=== PATIENT | female | born 1990 | race American Indian/Alaskan Native ===

== ENCOUNTER 2017-01-16 20:56 | Outpatient (CLI) | payer BC ==
[2017-01-16 22:02] VITALS: BP 97/55
== END 2017-01-16 22:11 | disposition home or self-care (01) ==
LOC: TRG 20:56
PROVIDERS: ATTEND Obstetrics & Gynecology
DX: O62.9 Abnormality of forces of labor, unspecified (principal); Z3A.37 37 weeks gestation of pregnancy

== ENCOUNTER 2017-01-18 09:08 | Inpatient (IN) | payer BC ==
[2017-01-18] MEDS ORDERED: LACTATED RINGERS 1,000 ML ONE ×2 (10:30→10:31)
[2017-01-18] MEDS ORDERED: SUBLIMAZE IV PRN (10:35)
[2017-01-18] MEDS ORDERED: BRETHINE IVP PRN (10:35)
[2017-01-18] MEDS ORDERED: BRETHINE SUB-Q PRN (10:35)
[2017-01-18] MEDS ORDERED: ePHEDrine SULFATE IV PRN (10:35)
[2017-01-18] MEDS ORDERED: MINERAL OIL PO PRN (10:35)
[2017-01-18] MEDS ORDERED: STADOL IV PRN (10:35)
[2017-01-18] MEDS ORDERED: PITOCin/NS 30 UNIT/500ML 30 UNITS/500 ML BAG IV SCH (11:00)
[2017-01-18] MEDS ORDERED: PITOCin/NS 20 UNIT/1000ML DRIP 20 UNITS/1,000 ML BAG IV SCH (11:00)
[2017-01-18] MEDS ORDERED: XYLOCAINE 2% INFILTRATI ONE (11:00)
[2017-01-18] MEDS ORDERED: LACTATED RINGERS 1,000 ML IV SCH (11:00)
[2017-01-18 11:16] LABS: Hematocrit 37.7 % (30.3-42.9); Hemoglobin 12.5 gm/dl (10.1-14.3); Mean Corpuscular HGB Conc 33 % (30-34); Mean Corpuscular Hemoglobin 30 pg (28-32); Mean Corpuscular Volume 90 fl (79-97); Platelet Count 187 K/mm3 (140-440); Red Blood Count 4.19 M/mm3 (3.65-5.03); White Blood Count 12.3 K/mm3 (4.5-11.0)
[2017-01-18] MEDS ORDERED: TYLENOL PO PRN (11:20)
[2017-01-18] MEDS ORDERED: MILK OF MAGNESIA PO PRN (11:20)
[2017-01-18] MEDS ORDERED: DULCOLAX PR PRN (11:20)
[2017-01-18] MEDS ORDERED: TUCKS PAD TP PRN (11:20)
[2017-01-18] MEDS ORDERED: ZOFRAN IV PRN (11:20)
[2017-01-18] MEDS ORDERED: PHENERGAN PO PRN (11:20)
[2017-01-18] MEDS ORDERED: LANSINOH TP PRN (11:20)
[2017-01-18] MEDS ORDERED: BENADRYL PO PRN (11:20)
--- NOTE | 2017-01-18 11:27 | Procedure Note ---
OB Delivery Note - Vaginal Delivery presentation: vertex Delivery position: OA Intrapartum events: none Delivery induction: none Delivery monitor: external FHT, external uterine Route of delivery: Delivery placenta: spontaneous Delivery cord: 3 umbilical vessels Episiotomy: none Delivery laceration: none Anesthesia: none Delivery comments: Precipitous spontaneous vaginal delivery of liveborn male over intact perineum. Baby's weight: 6 lbs.;apgars 8/9. Spontaneous cry and respirations. Baby placed immediately on maternal chest after . Baby bulb suctioned. 3 vessel cord was double clamped and cut after cessation of pulsation. Spontaneous delivery of intact placenta and membranes by branham mechanism. Pitocin to IV fluids after delivery of placenta. Fundus firm and midline. EBL 200 ml. No lacerations noted. Sponge counts correct. Mother and baby stable in birthing room.
--- NOTE | 2017-01-18 11:39 | History and Physical Report ---
History of Present Illness Date of examination: 01/18/17 Date of admission: 01/18/17 10:04 Chief complaint: Regular contractions. History of present illness: 26 year old presents in active labor. EDC 02/05/17. Patient reports rupture of membranes prior to arrival this morning with clear fluid. She denies vaginal bleeding. She received care at [facility]. She saw [facility] due to obesity class 3. Past History Past Medical History: other (obesity) Past Surgical History: no surgical history [facility] History: denies: herpes Family/Genetic History: none Social history: , lives with family. denies: smoking, alcohol abuse - Obstetrical History Expected Date of Delivery: 02/05/17 Actual Gestation: 37 Week(s) 3 Day(s) : 4 Para: 2 Hx # Term Pregnancies: 3 Number of Pregnancies: 0 Spontaneous Abortions: 1 Induced : 0 Number of Living Children: 2 Medications and Allergies Allergies Allergy/AdvReac Type Severity Reaction Status Date / Time No Known Allergies Allergy Verified 12/19/14 11:50 Home Medications Medication Instructions Recorded Confirmed Last Taken Type Ibuprofen [Motrin 600 MG tab] 600 mg PO Q6H #60 tablet 12/20/14 Unknown Rx Active Meds: Active Medications Acetaminophen (Tylenol) 650 mg PO Q4H PRN PRN Reason: Pain MILD(1-3)/Fever >100.5/[place] Bisacodyl (Dulcolax) 10 mg [place] BID PRN PRN Reason: Constipation Butorphanol Tartrate (Stadol) 2 mg IV Q2H PRN PRN Reason: Pain , Severe (7-10) Diphenhydramine HCl (Benadryl) 25 mg PO Q6H PRN PRN Reason: Itching Fentanyl (Sublimaze) 100 mcg IV Q2H PRN PRN Reason: Labor Pain Lactated Ringer's (Lactated Ringers) 1,000 mls @ 125 mls/hr IV DIRECT DULCE Oxytocin/Sodium Chloride (Pitocin/Ns 20 Unit/1000ml Drip) 20 units in 1,000 mls @ 125 mls/hr IV DIRECT DULCE Oxytocin/Sodium Chloride (Pitocin/Ns 30 Unit/500ml) 30 units in 500 mls @ 1 mls /hr IV TITR DULCE; 1 MILLIUNITS/MIN PRN Reason: Protocol Ibuprofen (Motrin) 600 mg PO Q6H DULCE Magnesium Hydroxide (Milk Of Magnesia) 30 ml PO HS PRN PRN Reason: Constipation Mineral Oil (Mineral Oil) 30 ml PO QHS PRN PRN Reason: Constipation Multi-Ingredient Ointment (Lansinoh) 1 applic TP PRN PRN PRN Reason: Sore Nipples Ondansetron HCl (Zofran) 4 mg IV Q8H PRN PRN Reason: Nausea And Vomiting Promethazine HCl (Phenergan) 25 mg PO Q6H PRN PRN Reason: Nausea And Vomiting Sodium Chloride (Sodium Chloride Flush Syringe 10 Ml) 10 ml IV PRN NR Witch Stephani/Glycerin (Tucks Pad) 1 each TP PRN PRN PRN Reason: Hemorrhoid/cleansing/soothing Review of Systems All systems: negative (leaking of water from vagina and contractions) - Vital Signs Vital signs: Vital Signs Temp Pulse 98 F 68 01/18/17 10:45 01/18/17 10:45 Temp Pulse Resp BP Pulse Ox 98 F 73 137/64 01/18/17 10:45 01/18/17 11:32 01/18/17 11:32 - Physical Exam Breasts: Positive: deferred Cardiovascular: Regular rate, No murmurs Lungs: Positive: Clear to auscultation Abdomen: Positive: normal appearance, soft. Negative: distention, tenderness, guarding Genitourinary (Female): Positive: normal external genitalia. Negative: perineal /vulvar lesions Vagina: Negative: discharge Uterus: Positive: enlarged. Negative: tender Extremities: Positive: normal. Negative: edema - Obstetrical FHR: category 1 Uterine Contraction Monitor Mode: External Cervical Dilatation: 10 Cervical Effacement Percentage: 100 station: +2 Uterine Contraction Frequency (min): Every 2 minutes Uterine Contraction Pattern: Regular Uterine Contraction Intensity: Strong/Firm Results Result Diagrams: 01/18/17 10:51 Abnormal lab results 01/18/17 Range/Units 10:51 WBC 12.3 H (4.5-11.0) K/mm3 RDW 13.0 L (13.2-15.2) % All other labs normal. Assessment and Plan A: Term . Spontaneous rupture of membranes. Advanced labor. P: Admit. Anticipate .
[2017-01-18] MEDS ORDERED: SODIUM CHLORIDE FLUSH SYRINGE 10 ML IV NR (12:00)
[2017-01-18] MEDS: MOTRIN PO SCH ×2 (12:28→19:11)
[2017-01-18] MEDS: NORCO 5/325 PO PRN (16:28)
[2017-01-19 00:18] LABS: Hematocrit 33.4 % (30.3-42.9); Hemoglobin 11.4 gm/dl (10.1-14.3)
[2017-01-19] MEDS: NORCO 5/325 PO PRN ×2 (00:26→09:29)
[2017-01-19] MEDS: MOTRIN PO SCH ×2 (00:27→14:53)
--- NOTE | 2017-01-19 11:12 | Progress Note ---
Assessment and Plan A: PP Day #1 Stable P: Follow Routine Orders Depo Provera prior to discharge D/C Home today per patient request RTO in 6 Weeks Subjective - Subjective Date of service: 01/19/17 Patient reports: appetite normal, voiding normally, pain well controlled, flatus , bowel movement, ambulating normally : doing well Objective - Vital Signs Latest vital signs: Vital Signs Temp Pulse Resp BP BP Pulse Ox 01/19/17 08:19 98.4 F 16 122/57 01/19/17 00:35 98.0 F 64 20 113/78 01/18/17 21:44 99/57 01/18/17 20:50 98.2 F 70 20 99/57 01/18/17 17:10 98.8 F 71 20 95/62 99 01/18/17 12:45 98.4 F 72 18 110/76 100 01/18/17 12:31 64 128/76 01/18/17 12:28 20 01/18/17 12:21 65 132/81 01/18/17 11:47 75 123/56 01/18/17 11:32 73 137/64 Intake and Output 01/18/17 01/19/17 01/19/17 22:59 06:59 14:59 Intake Total 240 480 Output Total 450 Balance -210 480 Intake: Oral 240 480 Output: Urine 450 Void 450 Other: Total, Intake Amount 240 240 Total, Output Amount 300 # Voids Void 1 1 - Exam Breasts: Present: normal Cardiovascular: Present: Regular rate Lungs: Present: Clear to auscultation, Normal air movement Abdomen: Present: normal appearance, soft, normal bowel sounds Uterus: Present: normal, firm, fundal height below umbilicus Extremities: Present: normal - Labs Labs: Abnormal lab results 01/18/17 Range/Units 10:51 WBC 12.3 H (4.5-11.0) K/mm3 RDW 13.0 L (13.2-15.2) %
--- NOTE | 2017-01-19 11:13 | Discharge Summary ---
Providers - Providers Date of Admission: 01/18/17 10:04 Date of discharge: 01/19/17 Attending physician: EDVIN BROWN MD Primary care physician: EDVIN BROWN MD Hospitalization Reason for admission: rupture of membranes Delivery: Episiotomy: none Laceration: none Other procedures: none complications: none Discharge diagnosis: IUP at term delivered baby: male Condition at discharge: Good Disposition: DC-01 TO HOME OR SELFCARE Plan - Provider Discharge Summary Activity: routine, no sex for 6 weeks, no heavy lifting 4 weeks, no strenuous exercise Diet: routine Instructions: routine Additional instructions: [] Smoking cessation referral if applicable(refer to patient education folder for contact #) [] Refer to [facility] Call your doctor immediately for: * Fever > 100.5 * Heavy vaginal bleeding ( >1 pad per hour) * Severe persistent headache * Shortness of breath * Reddened, hot, painful area to leg or breast * Drainage or odor from incision. * Keep incision clean and dry at all times and follow doctor's instructions regarding bathing/showering - Follow up plan Follow up: MARYSE JHA CNM [Advanced Practice Nurse] - 6 Weeks
[2017-01-19] MEDS ORDERED: DEPO-PROVERA (CONTRACEPTION) IM ONE (13:00)
[2017-01-19 16:29] VITALS: BP 125/63
== END 2017-01-19 17:02 | disposition home or self-care (01) | DRG 775 ==
LOC: TRG 09:08 → LD 10:04 → OB 12:38
PROVIDERS: ADMIT Obstetrics & Gynecology; ATTEND Obstetrics & Gynecology
PROC: 10E0XZZ Delivery of Products of Conception, External Approach (ICD-10-PCS; principal; 2017-01-18)
DX: O99.214 Obesity complicating childbirth (principal); E66.9 Obesity, unspecified; Z3A.37 37 weeks gestation of pregnancy; Z37.0 Single live birth; Z68.35 Body mass index [BMI] 35.0-35.9, adult
CPT/HCPCS: 36415; 85014; 85018; 85027; 86850; 86900; 86901; 99211; A6250; G0463; J1050; J2590; J3010; J7120